=== PATIENT | female | born 1940 | race Caucasian/White ===

== ENCOUNTER 2024-08-12 15:45 | Observation (INO) | payer MEDICARE ==
[~2024-08-12] VITALS: Ht 165.1 cm; Wt 74.8 kg
[2024-08-12] VITALS (7 sets, daily range): BP systolic 137; BP diastolic 99; PULSE 89–91; RESP 18–19; TEMP 97.7–98.4; O2SAT 97
[~2024-08-12 15:45] MED LIST: AMBIEN10 MG PO; AMLODIPINE BESYL5 MG PO; ARTIFICIAL TEA1 EAC1 OU; ASA325 PO; ASPIRIN325 MG PO; BP MEDICATION PO; Celecoxib PO; DICYCLOMINE HCL20 MG PO; ESTRADIOL1 MG PO; FENOFIBRATE160 MG PO; LIPITOR10 MG PO; NICORETTE2 MG PO; NRC7.5T PO; OMEPRAZOLE40 MG PO; OXYMETAZOLINE H15 ML; PAROXETINE HCL40 MG PO; PREMARIN1.25 MG PO; QUETIAPINE FUMA25 MG PO; REFLUX MEDICATION PO; ULTRAM50 MG PO; VITAMIN B-121000 MCG PO; VITAMIN D31000 UNIT PO; VITAMIN E400 UNIT PO; XANAX0.5 MG PO
[2024-08-12] MEDS ORDERED: ONDANSETRON HCL INJ 2MG/ML 2ML 2 MG/ML VIAL ONE (16:59)
[2024-08-12 17:09] LABS: BASOPHILS # (AUTO) 0.1 (0.0-0.1); BASOPHILS % 0.4 % (0.0-1.0); EOSINOPHILS # (AUTO) 0.5 (0.0-0.4); EOSINOPHILS % 3.4 % (0.0-6.0); HEMATOCRIT 48.3 % (34.2-44.1); HEMOGLOBIN 15.9 g/dL (12.0-16.0); LYMPHOCYTES # (AUTO) 2.1 (1.0-3.2); LYMPHOCYTES % 15.8 % (18.0-39.1); MEAN CORPUSCULAR HEMOGLOBIN 30.7 pg (28-32); MEAN CORPUSCULAR HGB CONC 32.9 g/dL (31-35); MEAN CORPUSCULAR VOLUME 93.2 fL (81-99); MONOCYTES # (AUTO) 1.1 (0.2-0.8); MONOCYTES % 8.2 % (4.4-11.3); NEUTROPHILS # (AUTO) 9.6 (2.1-6.9); NEUTROPHILS % 71.7 % (38.7-80.0); PLATELET COUNT 333 x10e3/uL (140-360); RED BLOOD COUNT 5.18 x10e6/uL (3.6-5.1); WHITE BLOOD COUNT 13.36 x10e3/uL (4.8-10.8)
[2024-08-12] MEDS: PROMETHAZINE 12.5MG/ NACL 0.9% 12.5 MG/50 ML BAG IV ONE (17:11)
[2024-08-12 17:33] LABS: ANION GAP 17.6 mmol/L (8-16); CALCIUM 8.8 mg/dL (8.4-10.2); CREATININE, SERUM 0.8 mg/dL (0.57-1.11); POTASSIUM 4.6 mmol/L (3.5-5.1)
[2024-08-12] MEDS: MECLIZINE HCL 12.5 MG TAB PO ONE (17:38)
[2024-08-12] MEDS ORDERED: MECLIZINE HCL12.5 MG PO (18:00)
[2024-08-12] MEDS ORDERED: ONDANSETRON ODT4 MG PO (18:00)
[2024-08-12] MEDS ORDERED: SODIUM CHLORIDE FLUSH 10 ML SYR INJ PRN (20:45)
[2024-08-12] MEDS ORDERED: NICOTINE 21 MG/EA PATCH ONE (21:08)
[2024-08-12] MEDS: ASPIRIN 81 MG CHEW TAB PO ONE (21:11)
[2024-08-12] MEDS: ONDANSETRON HCL INJ 2MG/ML 2ML 2 MG/ML VIAL IV PRN (21:11)
[2024-08-12] MEDS: ALPRAZOLAM 0.5 MG TAB PO PRN (21:11)
[2024-08-12] MEDS: NICOTINE 21 MG/EA PATCH TOP SCH (21:30)
[2024-08-12] MEDS ORDERED: IOPAMIDOL 370 MG/ML 100 ML INFUS..BTL INJ ONE (23:56)
[2024-08-13] MEDS: SODIUM CHLORIDE 0.45% 1,000 ML IV SCH (01:14)
[2024-08-13 03:43] VITALS: BP 135/70; PULSE 77; RESP 18; TEMP 97.7; O2SAT 97
[2024-08-13 06:28] LABS: BASOPHILS # (AUTO) 0.1 (0.0-0.1); BASOPHILS % 0.8 % (0.0-1.0); EOSINOPHILS # (AUTO) 0.6 (0.0-0.4); EOSINOPHILS % 5.3 % (0.0-6.0); HEMATOCRIT 44.6 % (34.2-44.1); HEMOGLOBIN 14.6 g/dL (12.0-16.0); LYMPHOCYTES % 28.5 % (18.0-39.1); MEAN CORPUSCULAR HEMOGLOBIN 30.5 pg (28-32); MEAN CORPUSCULAR HGB CONC 32.7 g/dL (31-35); MEAN CORPUSCULAR VOLUME 93.3 fL (81-99); MONOCYTES % 9.7 % (4.4-11.3); NEUTROPHILS # (AUTO) 5.9 (2.1-6.9); NEUTROPHILS % 55.3 % (38.7-80.0); PLATELET COUNT 341 x10e3/uL (140-360); RED BLOOD COUNT 4.78 x10e6/uL (3.6-5.1); WHITE BLOOD COUNT 10.59 x10e3/uL (4.8-10.8)
[2024-08-13 08:18] VITALS: BP 126/79; PULSE 78; RESP 18; TEMP 97.1; O2SAT 98
[2024-08-13 08:27] LABS: ALBUMIN 3.4 g/dL (3.5-5.0); ALBUMIN/GLOBULIN RATIO 1.3 (0.8-2.0); ANION GAP 16.7 mmol/L (8-16); BILIRUBIN,TOTAL 0.4 mg/dL (0.2-1.2); CALCIUM 8.5 mg/dL (8.4-10.2); CREATININE, SERUM 0.75 mg/dL (0.57-1.11); POTASSIUM 3.7 mmol/L (3.5-5.1); TOTAL PROTEIN 6.1 g/dL (6.5-8.1)
[2024-08-13 08:41] VITALS: BP 126/79; PULSE 78; RESP 18; TEMP 97.1; O2SAT 98
[2024-08-13] MEDS ORDERED: NICOTINE 14 MG/EA PATCH TOP SCH (09:00)
[2024-08-13] MEDS ORDERED: ALPRAZOLAM 0.5 MG TAB PO PRN (11:30)
[2024-08-13 12:31] VITALS: BP 123/64; PULSE 87; RESP 20; TEMP 97.9; O2SAT 95
[2024-08-13] MEDS: MECLIZINE HCL 12.5 MG TAB PO SCH (13:06)
[2024-08-13 16:12] VITALS: BP 110/66; PULSE 84; RESP 18; TEMP 97.3; O2SAT 98
[2024-08-13] MEDS ORDERED: MECLIZINE HCL12.5 MG PO (17:08)
[2024-08-13] MEDS ORDERED: NICODERM CQ1 EAC2 TOP (17:08)
== END 2024-08-13 18:57 | disposition home or self-care (01) ==
LOC: ER 16:49 → ERHOLD 20:36 → MED/SURG3 21:33
PROVIDERS: ADMIT Internal Medicine; ATTEND Internal Medicine
DX: H81.10 Benign paroxysmal vertigo, unspecified ear (principal); E86.0 Dehydration; R91.1 Solitary pulmonary nodule; E11.9 Type 2 diabetes mellitus without complications; I10 Essential (primary) hypertension; J44.9 Chronic obstructive pulmonary disease, unspecified; K21.9 Gastro-esophageal reflux disease without esophagitis; F41.9 Anxiety disorder, unspecified; E78.5 Hyperlipidemia, unspecified; Z72.0 Tobacco use; K58.9 Irritable bowel syndrome, unspecified
CPT/HCPCS: 36415 ×2; 70496; 70498; 70551; 71045; 80048; 80053; 84484; 85025 ×2; 93005; 97110; 97116; 97161; 99252; 99285; G0378 ×2; J2405; J2550; J8597 ×2; Q9967; 70450